=== PATIENT | male | born 1945 | race Caucasian/White ===

== ENCOUNTER 2018-03-16 06:05 | Emergency (ER) | payer MEDICARE ==
[2018-03-16] MEDS ORDERED: Adacel (T-DAP) 0.5 ML VIAL ONE (06:32)
== END 2018-03-16 06:45 | disposition home or self-care (01) ==
LOC: ERS 06:05
DX: S61.255A Open bite of left ring finger without damage to nail, initial encounter (principal); S60.445A External constriction of left ring finger, initial encounter; E78.1 Pure hyperglyceridemia; M19.90 Unspecified osteoarthritis, unspecified site; W54.0XXA Bitten by dog, initial encounter
CPT/HCPCS: 90471; 90715

== ENCOUNTER 2019-07-10 13:02 | Emergency (ER) | payer MEDICARE ==
[2019-07-10 13:30] LABS: #Basophils 0.1 thou/uL (0.0-0.2); #Eosinphils 0.2 thou/uL (0.0-0.7); #Lymphocytes 2.8 thou/uL (1.20-3.40); #Monocytes 0.9 thou/uL (0.11-0.59); #Neutrophils 5.6 thou/uL (1.40-6.50); %Basophils 0.8 % (0.0-1.0); %Eosinophils 1.8 % (0.0-10.0); %Lymphocytes 29.5 % (21.0-51.0); %Monocytes 9.7 % (0.0-10.0); %Neutrophils 58.2 % (42.0-75.0); Hemoglobin 14.9 g/dL (14.0-18.0); Mean Corpuscular HGB CONC 34.5 g/dL (32.0-36.0); Mean Corpuscular Hemoglobin 30.9 pg (27.0-31.0); Mean Corpuscular Volume 89.6 fL (78.0-98.0); Mean Platelet Volume 8.3 fL (7.4-10.4); Platelet Count 273 thou/uL (130-400); RBC Distribution Width 12.8 % (11.5-14.5); Red Blood Cell (RBC) Count 4.84 mill/uL (4.70-6.10); White Blood Cell (WBC) Count 9.6 thou/uL (4.8-10.8)
[2019-07-10 13:53] LABS: ALT (SGPT) 14 U/L (8-55); AST (SGOT) 20 U/L (5-34); Albumin 4.2 g/dL (3.4-4.8); Alkaline Phosphatase 67 U/L (40-110); Anion Gap 17 mmol/L (10-20); BUN (Urea Nitrogen) 21 mg/dL (8.4-25.7); Bilirubin, Total 0.5 mg/dL (0.2-1.2); CK (CPK) 65 U/L (30-200); Calc. Creatinine Clearance 0 mL/min (70-130); Calcium 9.6 mg/dL (7.8-10.44); Carbon Dioxide 22 mmol/L (23-31); Chloride 103 mmol/L (98-107); Estimated GFR-MDRD 63; Globulin 3.3 g/dL (2.4-3.5); Glucose 131 mg/dL (83-110); Potassium 4.3 mmol/L (3.5-5.1); Protein, Total 7.5 g/dL (5.8-8.1); Sodium 138 mmol/L (136-145)
--- NOTE | 2019-07-10 13:54 | CT ---
CT head noncontrast HISTORY: Seizure. Syncope. FINDINGS: There is no evidence of acute intracranial hemorrhage or infarct. The ventricles appear nor mal in size, shape and position. Subtle physiologic calcification at the basal ganglia. Mild chronic ischemic small vessel disease within the periventricular white matter of each cerebral hemisp here. There is no mass effect or shift of midline structures. Visualized paranasal sinuses remain well aerated IMPRESSION : No acute intracranial abnormalities are demonstrated.
--- NOTE | 2019-07-10 14:11 | RAD ---
PORTABLE CHEST 1 VIEW: Date: 07/10/2019 Time: 1359 hours HISTORY: Shortness of breath. COMPARISON: 02/21/2014. FINDINGS: The heart size remains borderline. The lungs are expanded without lobar consolidation, pneumothoraces , danay pulmonary edema, or pleural effusions. IMPRESSION: Stable exam. No acute process. POS: TAWANDA
--- NOTE | 2019-07-13 11:12 | EKG ---
Test Reason : Blood Pressure : / mmHG Vent. Rate : 064 BPM Atrial Rate : 064 BPM P-R Int : 174 ms QRS Dur : 092 ms QT Int : 456 ms P-R-T Axes : 030 -22 009 degrees QTc Int : 470 ms Normal sinus rhythm Normal ECG Confirmed by SAL STRONG, ASHLY Heath ([id number]), digital editor LUI TORRES ([id number]) on 07/13/2019 11:12:36 AM Referred By: Confirmed By:ASHLY HUANG MD
== END 2019-07-10 15:00 | disposition home or self-care (01) ==
LOC: ERS 13:02
DX: R55 Syncope and collapse (principal); M19.90 Unspecified osteoarthritis, unspecified site; E78.2 Mixed hyperlipidemia; I10 Essential (primary) hypertension; F17.220 Nicotine dependence, chewing tobacco, uncomplicated
CPT/HCPCS: 36415; 70450; 71045; 80053; 82550; 84484; 85025; 93005; 94760; 96360